=== PATIENT | female | born 2000 | race Caucasian/White ===

== ENCOUNTER → 2018-07-10 | Day surgery (SDC) | payer OTHER ==
[~2018-07-10] MED LIST: BUPIVACAINE 0.25% 30 ML SDV ONE; DEPO METHYLPREDNISOLONE 80 MG/ML SDV ONE; LIDOCAINE 1% 300 MG/30 ML SDV ONE
== END | disposition home or self-care (01) ==
LOC: FIMAGING 12:45
PROVIDERS: ATTEND Orthopaedic Surgery Foot and Ankle Surgery
DX: M79.672 Pain in left foot (principal)
CPT/HCPCS: J1040